=== PATIENT | female | born 1965 | race Caucasian/White ===

== ENCOUNTER 2021-10-05 08:50 | Emergency (ER) | payer BC ==
[2021-10-05] MEDS ORDERED: Meclizine HCl 25 MG TAB ONE (09:32)
[2021-10-05 09:38] LABS: #Lymphocytes 1.3 thou/uL (1.20-3.40); #Monocytes 0.4 thou/uL (0.11-0.59); %Basophils 0.2 % (0.0-1.0); %Eosinophils 0.4 % (0.0-10.0); %Lymphocytes 19.3 % (21.0-51.0); %Monocytes 6.2 % (0.0-10.0); %Neutrophils 73.8 % (42.0-75.0); Hemoglobin 14.9 g/dL (12.0-16.0); Mean Corpuscular HGB CONC 34.7 g/dL (32.0-36.0); Mean Corpuscular Hemoglobin 31.4 pg (27.0-31.0); Mean Corpuscular Volume 90.5 fL (78.0-98.0); Mean Platelet Volume 7.7 fL (7.4-10.4); Platelet Count 248 thou/uL (130-400); RBC Distribution Width 11.1 % (11.5-14.5); Red Blood Cell (RBC) Count 4.75 mill/uL (4.20-5.40); White Blood Cell (WBC) Count 6.7 thou/uL (4.8-10.8)
[2021-10-05 09:59] LABS: ALT (SGPT) 15 U/L (8-55); AST (SGOT) 20 U/L (5-34); Albumin 4.2 g/dL (3.5-5.0); Alkaline Phosphatase 47 U/L (40-110); Anion Gap 12 mmol/L (10-20); BUN (Urea Nitrogen) 12 mg/dL (9.8-20.1); Bilirubin, Total 0.5 mg/dL (0.2-1.2); Calc. Creatinine Clearance 0 mL/min (70-130); Calcium 9.5 mg/dL (7.8-10.44); Carbon Dioxide 25 mmol/L (22-29); Chloride 104 mmol/L (98-107); Globulin 2.8 g/dL (2.4-3.5); Glucose 95 mg/dL (70-105); Sodium 137 mmol/L (136-145)
[2021-10-06 08:01] LABS: SARS-CoV-2 PCR by NAA Not Detected (NotDetected)
== END 2021-10-05 11:05 | disposition home or self-care (01) ==
LOC: ERS 08:50
DX: R42 Dizziness and giddiness (principal); R11.0 Nausea; E03.9 Hypothyroidism, unspecified
CPT/HCPCS: 70450; 80053; 84484; 85025; 93005; U0003; U0005

== ENCOUNTER 2023-09-16 08:32 | Outpatient (CLI) | payer BC | END 2023-09-16 08:33 | disposition home or self-care (01) | LOC: CT 08:32 | PROVIDERS: ATTEND Otolaryngology | DX: J31.0 Chronic rhinitis (principal) ==

== ENCOUNTER 2024-10-04 08:48 | Outpatient (CLI) | payer BC | END 2024-10-04 08:49 | disposition home or self-care (01) | LOC: BICMAMMO 08:48 | PROVIDERS: ATTEND Obstetrics & Gynecology | DX: Z78.0 Asymptomatic menopausal state (principal); M85.89 Other specified disorders of bone density and structure, multiple sites | CPT/HCPCS: 77080 ==